=== PATIENT | male | born 1975 | race Caucasian/White ===

== ENCOUNTER 2021-11-22 17:54 | Emergency (ER) | payer MEDICAID ==
[~2021-11-22] VITALS: Ht 182.9 cm; Wt 93.2 kg
[2021-11-22] MEDS ORDERED: METH-659 PO (18:17)
[2021-11-22] MEDS ORDERED: IBUP-2342 PO (19:35)
[2021-11-22] MEDS ORDERED: AMOX1TAB16 PO (19:35)
[2021-11-22] MEDS ORDERED: KETOROLAC TROMETHAMINE 10 MG TABLET PO ONE (19:45)
[2021-11-22 19:47] VITALS: BP 135/67
== END 2021-11-22 19:48 | disposition home or self-care (01) ==
LOC: EMS 17:56
DX: K06.9 Disorder of gingiva and edentulous alveolar ridge, unspecified (principal); K08.89 Other specified disorders of teeth and supporting structures
CPT/HCPCS: 99283